=== PATIENT | female | born 2000 | race Caucasian/White ===

== ENCOUNTER 2020-02-10 21:01 | Emergency (ER) | payer OTHER ==
[~2020-02-10] VITALS: Ht 165.1 cm; Wt 100.7 kg
[2020-02-10 21:15] VITALS: Ht 165.1 cm; Wt 100.7 kg
[2020-02-10 21:53] LABS: BASOPHIL % 0.2 % (0-2); PLATELET COUNT 263 x10^3mcL (130-400); RED CELL DISTRIBUTION WIDTH 14.5 % (11.5-14.5)
[2020-02-10 22:09] LABS: CALCIUM 8.8 mg/dL (8.5-10.1); CARBON DIOXIDE 26.4 mmol/L (21-32); CHLORIDE SERUM 105 mmol/L (98-107); CREATININE SERUM 0.8 mg/dL (0.6-1.0); GFR1 > 60 mL/min; GLUCOSE SERUM 98 mg/dL (74-106); POTASSIUM SERUM 3.6 mmol/L (3.5-5.1); SODIUM SERUM 143 mmol/L (136-145)
[2020-02-10 22:13] LABS: ALBUMIN 3.8 g/dL (3.4-5.0); ALKALINE PHOSPHATASE 99 U/L (46-116); ALT/SGPT 27 U/L (14-59); AST/SGOT 16 U/L (15-37); BILIRUBIN TOTAL 0.3 mg/dL (0.20-1.00); LIPASE 73 IU/L (73-393)
[2020-02-10 23:49] VITALS: BP 134/78
== END 2020-02-10 23:49 | disposition home or self-care (01) ==
LOC: ED 21:01
PROVIDERS: Emergency Medicine
DX: K52.9 Noninfective gastroenteritis and colitis, unspecified (principal)
CPT/HCPCS: 36415; Q0092

== ENCOUNTER 2020-03-20 21:28 | Emergency (ER) | payer OTHER ==
[~2020-03-20] VITALS: Ht 165.1 cm; Wt 97.2 kg
[2020-03-20 21:41] VITALS: Ht 165.1 cm; Wt 97.2 kg
[2020-03-20 23:23] VITALS: BP 144/91
== END 2020-03-20 23:23 | disposition home or self-care (01) ==
LOC: ED 21:28
DX: S16.1XXA Strain of muscle, fascia and tendon at neck level, initial encounter (principal); V49.49XA Driver injured in collision with other motor vehicles in traffic accident, initial encounter; Y93.I9 Activity, other involving external motion; Y92.413 State road as the place of occurrence of the external cause; Y99.8 Other external cause status
CPT/HCPCS: J1885